=== PATIENT | female | born 1960 | race Caucasian/White ===

== ENCOUNTER 2018-10-31 07:55 | Observation (INO) | payer OTHER ==
[2018-10-31] MEDS: SOD CHLORIDE 0.9% 1,000 ML IV (08:54)
[2018-10-31] MEDS: CLINDAMYCIN 900 MG/D5W (PMX) 50 ML IVPB (09:30)
[2018-10-31] MEDS ORDERED: ROCURONIUM 50 MG INJ (12:59)
[2018-10-31] MEDS ORDERED: PROPOFOL 20 ML (12:59)
[2018-10-31] MEDS ORDERED: LIDOCAINE 2% (SDV) 5 ML INJ (12:59)
[2018-10-31] MEDS ORDERED: DEXAMETHASONE 4 MG/ML 5 ML INJ (13:25)
[2018-10-31] MEDS ORDERED: ONDANSETRON 4 MG INJ (13:25)
[2018-10-31] MEDS: BUPIVACAINE 0.25% (MPF) 30 ML INJ (13:34)
[2018-10-31] MEDS: POLYMYXIN/BACITRACIN 1L IRRIG (13:34)
[2018-10-31] MEDS ORDERED: SUGAMMADEX SODIUM 200 MG/2 ML VIAL IV (13:37)
[2018-10-31] MEDS ORDERED: METOCLOPRAMIDE 10 MG INJ IV (14:00)
[2018-10-31] MEDS ORDERED: ONDANSETRON 4 MG INJ IV (14:00)
[2018-10-31] MEDS ORDERED: FENTAnyl 50 MCG/ML VIAL IV ×2 (14:00)
[2018-10-31] MEDS ORDERED: LABETALOL HCL 20MG INJ IV (14:00)
[2018-10-31] MEDS ORDERED: ALBUTEROL 0.083% (NEB) 2.5 MG/3 ML AMP HHN (14:00)
[2018-10-31] MEDS ORDERED: hydrALAzine 20 MG INJ IV (14:00)
[2018-10-31] MEDS ORDERED: OXYCODONE/ACETAMINOPHEN (5/325) TAB PO ×2 (14:00)
[2018-10-31] MEDS ORDERED: HYDROmorphONE 1 MG/5 ML IV SYRINGE IV ×3 (14:00)
[2018-10-31] MEDS ORDERED: DIPHENHYDRAMINE 50 MG INJ IV (14:00)
[2018-10-31] MEDS ORDERED: MEPERIDINE 25 MG INJ IV (14:00)
[2018-10-31] MEDS: FENTAnyl 50 MCG/ML VIAL IV (14:06)
[2018-10-31] MEDS: KETOROLAC 30 MG INJ IV (14:07)
[2018-10-31] MEDS: HYDROCODONE/APAP (5/325) TAB PO (15:42)
[2018-10-31] MEDS ORDERED: ACETAMINOPHEN 325 MG TAB PO (20:00)
[2018-10-31] MEDS: SOD CHLORIDE 0.45% 1,000 ML IV (20:56)
[2018-10-31] MEDS: DULOXETINE 30 MG CAP DR PO (20:56)
[2018-10-31] MEDS: ATORVASTATIN 10 MG TAB PO (21:55)
[2018-10-31] MEDS: morphine 2 MG INJ IV (21:59)
[2018-11-01] MEDS: SOD CHLORIDE 0.45% 1,000 ML IV ×3 (03:34→15:51)
[2018-11-01 06:05] LABS: ADD MAN DIFF? NO
[2018-11-01 06:09] LABS: BASOPHILS % 0.1 % (0.0-2.0); HEMATOCRIT 37.7 % (37.0-47.0); HEMOGLOBIN 12.8 g/dl (12.0-16.0); LYMPHOCYTES # 1.1 10^3/ul (0.8-2.9); LYMPHOCYTES % 11.7 % (15.0-51.0); MEAN CORPUSCULAR HEMOGLOBIN 31.8 pg (29.0-33.0); MEAN CORPUSCULAR VOLUME 93.5 fl (82.0-101.0); MEAN PLATELET VOLUME 10.4 fl (7.4-10.4); MONOCYTE # 0.3 10^3/ul (0.3-0.9); MONOCYTES % 3.5 % (0.0-11.0); NEUTROPHIL # 7.9 10^3/ul (1.6-7.5); NEUTROPHILS % 84.3 % (39.0-77.0); PLATELET COUNT 281 10^3/UL (140-415); RED BLOOD COUNT 4.03 10^6/ul (4.20-5.40); RED CELL DISTRIBUTION WIDTH 11.9 % (11.5-14.5)
[2018-11-01 06:09] LABS: WHITE BLOOD COUNT 9.4 10^3/ul (4.8-10.8)
[2018-11-01] MEDS: PANTOPRAZOLE (EC) 40 MG TAB PO (06:13)
[2018-11-01] MEDS: LEVOTHYROXINE 75 MCG TAB PO (06:13)
[2018-11-01 06:40] LABS: ANION GAP 8 (5-13); BLOOD UREA NITROGEN 11 mg/dl (7-20); CALCIUM 8.6 mg/dl (8.4-10.2); CARBON DIOXIDE 27 mmol/L (21-31); CHLORIDE 108 mmol/L (97-110); CREATININE 0.52 mg/dl (0.44-1.00); Estimated GFR > 60 mL/min (>60); GLUCOSE 125 mg/dl (70-220); POTASSIUM 3.8 mmol/L (3.5-5.1); SODIUM 143 mmol/L (135-144)
[2018-11-01] MEDS: OXYBUTYNIN (XL) 5 MG TAB PO (08:03)
[2018-11-01] MEDS: HYDROCODONE/APAP (5/325) TAB PO ×2 (08:03→17:06)
[2018-11-01] MEDS: DULOXETINE 30 MG CAP DR PO ×2 (08:03→20:26)
[2018-11-01] MEDS: morphine 2 MG INJ IV (15:50)
[2018-11-01] MEDS: ONDANSETRON 4 MG INJ IV (20:26)
[2018-11-01] MEDS: ATORVASTATIN 10 MG TAB PO (20:26)
[2018-11-02] MEDS: SOD CHLORIDE 0.45% 1,000 ML IV (02:40)
[2018-11-02 05:54] LABS: ADD MAN DIFF? NO
[2018-11-02 06:02] LABS: BASOPHILS % 0.3 % (0.0-2.0); EOSINOPHILS % 0.1 % (0.0-7.0); HEMATOCRIT 36.3 % (37.0-47.0); HEMOGLOBIN 12.3 g/dl (12.0-16.0); LYMPHOCYTES # 1.6 10^3/ul (0.8-2.9); LYMPHOCYTES % 14.3 % (15.0-51.0); MEAN CORPUSCULAR HEMOGLOBIN 31.8 pg (29.0-33.0); MEAN CORPUSCULAR HGB CONC 33.9 g/dl (32.0-37.0); MEAN CORPUSCULAR VOLUME 93.8 fl (82.0-101.0); MEAN PLATELET VOLUME 10.7 fl (7.4-10.4); MONOCYTE # 0.5 10^3/ul (0.3-0.9); MONOCYTES % 4.4 % (0.0-11.0); NEUTROPHIL # 8.9 10^3/ul (1.6-7.5); NEUTROPHILS % 80.2 % (39.0-77.0); PLATELET COUNT 229 10^3/UL (140-415); RED BLOOD COUNT 3.87 10^6/ul (4.20-5.40); RED CELL DISTRIBUTION WIDTH 12.1 % (11.5-14.5)
[2018-11-02] MEDS: LEVOTHYROXINE 75 MCG TAB PO (06:11)
[2018-11-02] MEDS: PANTOPRAZOLE (EC) 40 MG TAB PO (06:11)
[2018-11-02 06:45] LABS: ANION GAP 6 (5-13); BLOOD UREA NITROGEN 11 mg/dl (7-20); CALCIUM 8.2 mg/dl (8.4-10.2); CARBON DIOXIDE 28 mmol/L (21-31); CHLORIDE 108 mmol/L (97-110); CREATININE 0.61 mg/dl (0.44-1.00); Estimated GFR > 60 mL/min (>60); GLUCOSE 119 mg/dl (70-220); POTASSIUM 4.1 mmol/L (3.5-5.1); SODIUM 142 mmol/L (135-144)
[2018-11-02] MEDS: OXYBUTYNIN (XL) 5 MG TAB PO (08:02)
[2018-11-02] MEDS: DULOXETINE 30 MG CAP DR PO (08:02)
[2018-11-02] MEDS: HYDROCODONE/APAP (5/325) TAB PO ×3 (11:26→16:41)
[2018-11-02] MEDS: ONDANSETRON 4 MG INJ IV (12:05)
[2018-11-02] MEDS: DOCUSATE SODIUM 100 MG CAP PO (12:59)
[2018-11-02] MEDS: POLYETHYLENE GLYCOL 17 GM PACKET GTB (13:01)
== END 2018-11-02 16:59 | disposition home or self-care (01) ==
LOC: SDS 07:55 → REC 17:04 → PP2 18:22
DX: K43.0 Incisional hernia with obstruction, without gangrene (principal); E03.9 Hypothyroidism, unspecified; E78.5 Hyperlipidemia, unspecified
CPT/HCPCS: 49655; 80048; 85025; G0378